=== PATIENT | female | born 1960 | race Caucasian/White ===

== ENCOUNTER 2020-05-18 11:21 | Emergency (ER) | payer OTHER ==
[2020-05-18 11:36] VITALS: BP 164/73
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
== END 2020-05-18 11:57 | disposition home or self-care (01) ==
LOC: ER 11:21
DX: S29.019A Strain of muscle and tendon of unspecified wall of thorax, initial encounter (principal); M54.2 Cervicalgia; M54.5 Low back pain; V40.5XXA Car driver injured in collision with pedestrian or animal in traffic accident, initial encounter; F17.200 Nicotine dependence, unspecified, uncomplicated
CPT/HCPCS: 99283